=== PATIENT | female | born 1950 | race Caucasian/White ===

== ENCOUNTER 2023-01-12 10:23 | Inpatient (IN) | payer OTHER ==
[~2023-01-12] VITALS: Ht 153.7 cm; Wt 99.0 kg
[~2023-01-12 10:23] MED LIST: ALEN35TA18 PO; ALL100T PO; AML5T PO; ATE50T PO; HYDR-4072 PO; HYDR25TA4 PO; PANT40TA2 PO
[2023-01-12 11:25] VITALS: PULSE 108; RESP 16; O2SAT 91
[2023-01-12 11:35] LABS: INR 1.14 (0.9-1.15); Partial Thromboplastin Time 30.2 SEC (24.5-34.5); Prothrombin Time 11.9 sec (9.3-11.8)
[2023-01-12 11:41] LABS: Albumin 2.3 g/dL (3.4-5.0); BUN/Creatinine Ratio 18.6 (10.0-20.0); Calcium 8.3 mg/dL (8.5-10.1)
[2023-01-12 11:44] LABS: Total Protein 6.4 g/dL (6.4-8.2)
[2023-01-12 11:49] LABS: Basophils # (auto) 0.1 10 ^3/uL (0-0.2); Basophils % (auto) 0.4 % (0.0-2.0); Eosinophils # (auto) 0 10 ^3/uL (0-0.8); Eosinophils % (auto) 0.1 % (0.0-7.0); Hematocrit 35.7 % (36.0-46.0); Hemoglobin 11.8 g/dL (12.2-16.2); Lymphocytes # (auto) 1.1 10 ^3/uL (0.4-5.4); Lymphocytes % (auto) 6.1 % (10.0-50.0); Mean Corpuscular Hemoglobin 29.3 pg (28.0-32.0); Mean Corpuscular Hgb Conc. 32.9 g/dL (32.0-36.0); Mean Corpuscular Volume 89.1 fL (80.0-100.0); Monocytes # (auto) 1.2 10 ^3/uL (0-1.3); Monocytes % (auto) 6.5 % (0.0-12.0); Neutrophils # (auto) 16.4 10 ^3/uL (1.6-8.6); Neutrophils % (auto) 86.9 % (37.0-80.0); Nucleated Red Blood Cells % 0.1 %; Red Blood Cells 4.01 10^6/uL (4.0-5.20); White Blood Cell 18.9 10^3/uL (4.4-10.8)
[2023-01-12] MEDS ORDERED: ONDANSETRON HCL 4 MG/2 ML VIAL IV PRN (13:45)
[2023-01-12] MEDS ORDERED: ACETAMINOPHEN 325 MG TAB PO PRN (13:45)
[2023-01-12] MEDS ORDERED: MORPHINE SULFATE INJ 2 MG/ml SYRG IV PRN (13:45)
[2023-01-12] MEDS ORDERED: POTASSIUM CHL 20MEQ/100ML 100 ML IV ONE ×2 (14:45→22:00)
[2023-01-12] MEDS: HYDROcodone-ACET 5/325MG TAB PO PRN ×2 (15:03→23:22)
[2023-01-12 15:21] LABS: COVID19 ANTIGEN SOFIA FIA NEGATIVE (NEGATIVE)
[2023-01-12 22:01] VITALS: PULSE 107; RESP 20; O2SAT 92
[2023-01-12 23:13] VITALS: BP 151/85; PULSE 123; RESP 22; TEMP 97.6; O2SAT 93
[2023-01-12] MEDS: amLODIPine BESYLATE 5 MG TAB PO SCH (23:21)
[2023-01-13] VITALS (7 sets, daily range): BP systolic 121–149; BP diastolic 51–83; PULSE 71–118; RESP 18–22; TEMP 97.7–98.2; O2SAT 92–97
[2023-01-13] MEDS ORDERED: fentaNYL CITRATE 100 MCG/2 ML VL ONE (07:38)
[2023-01-13] MEDS ORDERED: MEPERIDINE HCL (25 MG/ML) 1ML VIAL ONE ×2 (07:39→09:42)
[2023-01-13] MEDS ORDERED: MIDAZOLAM HCL 2MG/2ML 2ml VIAL (1mg/ml) ONE (07:39)
[2023-01-13] MEDS ORDERED: PROPOFOL 10 MG/ML 20 ML IV ONE (07:45)
[2023-01-13] MEDS ORDERED: DexAMETHasone SOD PHOS 10MG/1ML VIAL INJ ONE (07:45)
[2023-01-13] MEDS ORDERED: ceFAZolin 1GM/50ML 100 ML IV ONE ×2 (07:53→07:55)
[2023-01-13] MEDS ORDERED: SUCCINYLCHOLINE CHLORIDE 20 MG/ML 10ML VIAL IV ONE (07:59)
[2023-01-13] MEDS ORDERED: LIDOCAINE 2% JELLY 11ml (GLYDO) ONE (08:18)
[2023-01-13] MEDS ORDERED: ONDANSETRON HCL 4 MG/2 ML VIAL IV PRN ×2 (08:45→10:15)
[2023-01-13] MEDS ORDERED: MILK OF MAGNESIA 30ML SUSP PO PRN (08:45)
[2023-01-13] MEDS ORDERED: ACETAMINOPHEN 325 MG TAB PO PRN (08:45)
[2023-01-13] MEDS ORDERED: HYDROmorphone HCL 2 MG/ML VL/or syr IV PRN (10:15)
[2023-01-13] MEDS ORDERED: LABETALOL HCL 5 MG/ML 4ML SYRINGE IV PRN (10:15)
[2023-01-13] MEDS ORDERED: ePHEDrine SULFATE 50 MG/ML AMP IV PRN (10:15)
[2023-01-13] MEDS ORDERED: MIDAZOLAM HCL 2MG/2ML 2ml VIAL (1mg/ml) IV PRN (10:15)
[2023-01-13] MEDS ORDERED: MORPHINE SULFATE 4 MG/ML SYR/VIAL IV PRN (10:15)
[2023-01-13] MEDS ORDERED: hydrALAZINE HCL 20 MG/ML VL IV PRN (10:15)
[2023-01-13 12:27] LABS: Calcium 8.2 mg/dL (8.5-10.1); Potassium 3.2 mmol/L (3.5-5.1)
[2023-01-13 12:32] LABS: BUN/Creatinine Ratio 26.1 (10.0-20.0); Bilirubin, Total 1.2 mg/dL (0.2-1.0); Total Protein 6.7 g/dL (6.4-8.2)
[2023-01-13] MEDS: DOCUSATE SOD 100 MG CAP PO SCH ×2 (13:08→21:34)
[2023-01-13] MEDS: PANTOPRAZOLE 40 MG TAB PO SCH (13:08)
[2023-01-13] MEDS: amLODIPine BESYLATE 5 MG TAB PO SCH ×2 (13:08→21:37)
[2023-01-13] MEDS: ATENOLOL 50 MG TAB PO SCH (13:09)
[2023-01-13] MEDS: D5W/SOD CHLO 0.9% 1,000 ML IV SCH ×2 (13:11→18:45)
[2023-01-13 13:43] LABS: Basophils # (auto) 0 10 ^3/uL (0-0.2); Basophils % (auto) 0.2 % (0.0-2.0); Eosinophils # (auto) 0 10 ^3/uL (0-0.8); Hematocrit 34.6 % (36.0-46.0); Hemoglobin 11.2 g/dL (12.2-16.2); Lymphocytes # (auto) 0.6 10 ^3/uL (0.4-5.4); Lymphocytes % (auto) 3.7 % (10.0-50.0); Mean Corpuscular Hemoglobin 29.2 pg (28.0-32.0); Mean Corpuscular Hgb Conc. 32.3 g/dL (32.0-36.0); Mean Corpuscular Volume 90.3 fL (80.0-100.0); Monocytes # (auto) 0.5 10 ^3/uL (0-1.3); Monocytes % (auto) 3.1 % (0.0-12.0); Neutrophils # (auto) 14.1 10 ^3/uL (1.6-8.6); Nucleated Red Blood Cells % 0.1 %; Red Blood Cells 3.84 10^6/uL (4.0-5.20); Red Cell Distribution Width 15.1 % (11.8-14.3); White Blood Cell 15.2 10^3/uL (4.4-10.8)
[2023-01-13] MEDS: CYCLOBENZAPRINE HCL 10 MG TAB PO SCH ×2 (14:21→21:34)
[2023-01-13] MEDS: ceFAZolin 1GM/50ML 50 ML IV SCH ×2 (17:20→23:17)
[2023-01-13] MEDS ORDERED: ONDANSETRON HCL 4 MG/2 ML VIAL IV ONE (20:23)
[2023-01-13] MEDS ORDERED: ETOMIDATE (2MG/ML) 20ML VIAL IV ONE (20:23)
[2023-01-13] MEDS: HYDROcodone-ACET 10/325MG TAB PO PRN (21:37)
[2023-01-14] MEDS: HYDROcodone-ACET 10/325MG TAB PO PRN ×3 (02:29→17:18)
[2023-01-14] MEDS: D5W/SOD CHLO 0.9% 1,000 ML IV SCH (04:45)
[2023-01-14 05:00] VITALS: BP 139/72; PULSE 83; RESP 18; TEMP 97.9; O2SAT 91
[2023-01-14] MEDS: CYCLOBENZAPRINE HCL 10 MG TAB PO SCH ×2 (05:59→13:53)
[2023-01-14 06:57] LABS: Basophils # (auto) 0.1 10 ^3/uL (0-0.2); Basophils % (auto) 0.5 % (0.0-2.0); Eosinophils # (auto) 0 10 ^3/uL (0-0.8); Hematocrit 31.2 % (36.0-46.0); Lymphocytes # (auto) 1.3 10 ^3/uL (0.4-5.4); Lymphocytes % (auto) 9.2 % (10.0-50.0); Mean Corpuscular Volume 90.4 fL (80.0-100.0); Monocytes # (auto) 0.8 10 ^3/uL (0-1.3); Monocytes % (auto) 5.8 % (0.0-12.0); Neutrophils # (auto) 12.2 10 ^3/uL (1.6-8.6); Neutrophils % (auto) 84.5 % (37.0-80.0); Red Blood Cells 3.45 10^6/uL (4.0-5.20); Red Cell Distribution Width 15.1 % (11.8-14.3); White Blood Cell 14.4 10^3/uL (4.4-10.8)
[2023-01-14 07:22] LABS: Calcium 7.8 mg/dL (8.5-10.1); Potassium 3.4 mmol/L (3.5-5.1)
[2023-01-14 07:24] LABS: BUN/Creatinine Ratio 25.8 (10.0-20.0)
[2023-01-14 08:00] VITALS: BP 137/71; PULSE 84; RESP 20; TEMP 97.8; O2SAT 94
[2023-01-14 09:00] VITALS: BP 137/71; PULSE 92; RESP 20; TEMP 97.8; O2SAT 97
[2023-01-14] MEDS: amLODIPine BESYLATE 5 MG TAB PO SCH (09:10)
[2023-01-14] MEDS: DOCUSATE SOD 100 MG CAP PO SCH (09:12)
[2023-01-14] MEDS: PANTOPRAZOLE 40 MG TAB PO SCH (09:13)
[2023-01-14] MEDS: ATENOLOL 50 MG TAB PO SCH (09:13)
[2023-01-14] MEDS ORDERED: POTASSIUM CHL 20 Meq TABLET PO ONE (09:30)
[2023-01-14 13:00] VITALS: BP 127/63; PULSE 80; RESP 20; TEMP 98.6; O2SAT 91
[2023-01-14 17:41] VITALS: BP 137/71; PULSE 92; RESP 20; TEMP 97.8; O2SAT 97
[2023-01-14 20:00] VITALS: O2SAT 94
== END 2023-01-14 20:24 | DRG 908 ==
LOC: ER 10:23 → TELE 13:48 → TELE-WESTW 22:57
PROVIDERS: ADMIT Internal Medicine; ATTEND Internal Medicine
PROC: 009U0ZZ Drainage of Spinal Canal, Open Approach (ICD-10-PCS; principal; 2023-01-13 08:11)
DX: M96.843 Postprocedural seroma of a musculoskeletal structure following other procedure (principal); Z68.41 Body mass index [BMI] 40.0-44.9, adult; M48.061 Spinal stenosis, lumbar region without neurogenic claudication; E87.6 Hypokalemia; Z20.822 Contact with and (suspected) exposure to COVID-19; R29.6 Repeated falls; Y83.8 Other surgical procedures as the cause of abnormal reaction of the patient, or of later complication, without mention of misadventure at the time of the procedure; I10 Essential (primary) hypertension; Z88.8 Allergy status to other drugs, medicaments and biological substances; Z82.0 Family history of epilepsy and other diseases of the nervous system; Z82.49 Family history of ischemic heart disease and other diseases of the circulatory system; Z88.6 Allergy status to analgesic agent; Z90.49 Acquired absence of other specified parts of digestive tract; Y92.89 Other specified places as the place of occurrence of the external cause
CPT/HCPCS: 36415; 71045; 72100; 76000; 80048; 80053; 84484; 85025; 85610; 85730; 87426; 96360; 97163; G0378; J0330; J0690; J1100; J2250; J2405; J2704; J3480; J7042

== ENCOUNTER 2023-02-14 04:33 | Inpatient (IN) | payer OTHER ==
[~2023-02-14] VITALS: Ht 165.1 cm; Wt 132.6 kg
[~2023-02-14 04:33] MED LIST changes: -ALEN35TA18 PO; -HYDR25TA4 PO
[2023-02-14 11:28] VITALS: BP 132/66; PULSE 70; RESP 19; TEMP 98.4
[2023-02-14] MEDS ORDERED: ONDANSETRON HCL 4 MG/2 ML VIAL IV PRN (12:45)
[2023-02-14] MEDS ORDERED: HYDROcodone-ACET 5/325MG TAB PO PRN (12:45)
[2023-02-14] MEDS ORDERED: NITROGLYCERIN 0.4 MG SL TAB SL PRN (12:45)
[2023-02-14] MEDS ORDERED: MORPHINE SULFATE INJ 2 MG/ml SYRG IV PRN ×2 (12:45)
[2023-02-14 13:05] VITALS: BP 132/66; PULSE 70; RESP 19; TEMP 98.4; O2SAT 96
[2023-02-14] MEDS: SODIUM CHLORIDE 0.9% 1,000 ML IV SCH ×2 (13:41→21:05)
[2023-02-14] MEDS: CEFEPIME 2GM/50ML NS 50 ML IV SCH ×2 (13:53→21:32)
[2023-02-14 14:46] LABS: Hemoglobin 10.9 g/dL (12.2-16.2); Red Blood Cells 3.82 10^6/uL (4.0-5.20)
[2023-02-14 14:48] LABS: Hematocrit 33.8 % (36.0-46.0); Mean Corpuscular Hemoglobin 28.4 pg (28.0-32.0); Mean Corpuscular Hgb Conc. 32.1 g/dL (32.0-36.0); Mean Corpuscular Volume 88.4 fL (80.0-100.0); Red Cell Distribution Width 15.9 % (11.8-14.3)
[2023-02-14 14:49] LABS: Anion Gap 11.4 (5-15); Carbon Dioxide 20.6 mmol/L (20-30); Chloride 106 mmol/L (98-107); Potassium 3.6 mmol/L (3.5-5.1); Sodium 138 mmol/L (136-145); White Blood Cell 1.5 10^3/uL (4.4-10.8)
[2023-02-14 14:50] LABS: Calcium 8.8 mg/dL (8.5-10.1)
[2023-02-14 14:51] LABS: Band Neutrophils % (manual) 0; Blast Cells 0; Metamyelocytes % 0; Monocytes % (manual) 0 (0-12); Myelocytes % 0; Promyelocytes % 0; Reactive Lymphocytes 0
[2023-02-14 14:54] LABS: Glucose 89 mg/dL (74-106)
[2023-02-14 14:55] LABS: BUN/Creatinine Ratio 24.5 (10.0-20.0); Blood Urea Nitrogen 12 mg/dL (9-23)
[2023-02-14 15:20] LABS: Basophils % (manual) 1 (0.0-2.0); Eosinophils % (manual) 3 (0-7); Lymphocytes % (manual) 76 (10.0-50.0)
[2023-02-14 15:21] LABS: Platelet Estimate Decreased
[2023-02-14 20:00] VITALS: PULSE 85
[2023-02-14 22:00] VITALS: BP 153/69; PULSE 90; RESP 19; TEMP 97.6; O2SAT 97
[2023-02-15 05:00] VITALS: BP 150/86; PULSE 80; RESP 18; TEMP 97.8; O2SAT 98
[2023-02-15] MEDS: SODIUM CHLORIDE 0.9% 1,000 ML IV SCH ×3 (05:07→21:03)
[2023-02-15 06:00] LABS: Hematocrit 34.6 % (36.0-46.0); Hemoglobin 11.2 g/dL (12.2-16.2); Mean Corpuscular Hemoglobin 28.5 pg (28.0-32.0); Mean Corpuscular Hgb Conc. 32.4 g/dL (32.0-36.0); Mean Corpuscular Volume 87.8 fL (80.0-100.0); Red Blood Cells 3.94 10^6/uL (4.0-5.20); Red Cell Distribution Width 15.5 % (11.8-14.3)
[2023-02-15 06:03] LABS: White Blood Cell 0.3 10^3/uL (4.4-10.8)
[2023-02-15] MEDS: CEFEPIME 2GM/50ML NS 50 ML IV SCH ×2 (06:04→13:26)
[2023-02-15 06:05] LABS: Band Neutrophils % (manual) 0; Basophils % (manual) 0 (0.0-2.0); Blast Cells 0; Eosinophils % (manual) 0 (0-7); Metamyelocytes % 0; Myelocytes % 0; Promyelocytes % 0; Reactive Lymphocytes 0
[2023-02-15 06:26] LABS: Alanine Aminotransferase 23 U/L (7-40); Albumin 3.9 g/dL (3.2-4.8); Alkaline Phosphatase 161 U/L (46-116); Anion Gap 11.8 (5-15); Aspartate Aminotransferase 75 U/L (13-40); BUN/Creatinine Ratio 23.6 (10.0-20.0); Bilirubin, Total 0.3 mg/dL (0.2-1.0); Blood Urea Nitrogen 13 mg/dL (9-23); Carbon Dioxide 20.2 mmol/L (20-30); Chloride 104 mmol/L (98-107); Glucose 87 mg/dL (74-106); Potassium 3.3 mmol/L (3.5-5.1); Sodium 136 mmol/L (136-145)
[2023-02-15 06:27] LABS: Total Protein 6.5 g/dL (5.7-8.2)
[2023-02-15 08:00] VITALS: BP 134/74; PULSE 104; PULSE 109; RESP 20; TEMP 98.8; O2SAT 97
[2023-02-15 09:42] VITALS: BP 134/74; PULSE 104; RESP 20; TEMP 98.8; O2SAT 97
[2023-02-15] MEDS: ENOXAPARIN SOD 40 MG/0.4 ML SYRINGE SC SCH (09:57)
[2023-02-15 12:53] LABS: Lymphocytes % (manual) 88 (10.0-50.0); Monocytes % (manual) 4 (0-12)
[2023-02-15 12:54] LABS: Platelet Estimate Decreased
[2023-02-15 13:22] VITALS: BP 149/69; PULSE 93; RESP 19; TEMP 97.7; O2SAT 94
[2023-02-15] MEDS: AZTREONAM 1GM INJ 1 GM in D5W 5% 50 ML IV SCH ×2 (15:54→21:03)
[2023-02-15 16:53] VITALS: BP 148/73; PULSE 73; RESP 19; TEMP 100.4; O2SAT 93
[2023-02-15] MEDS: ACETAMINOPHEN 325 MG TAB PO PRN (16:58)
[2023-02-15 20:00] VITALS: PULSE 86
[2023-02-15] MEDS ORDERED: POTASSIUM CHL 20 Meq TABLET PO ONE (20:30)
[2023-02-15] MEDS: amLODIPine BESYLATE 5 MG TAB PO SCH (21:03)
[2023-02-16] VITALS (9 sets, daily range): BP systolic 138–164; BP diastolic 64–84; PULSE 62–99; RESP 16–19; TEMP 97.9–98.7; O2SAT 95–98
[2023-02-16] MEDS: AZTREONAM 1GM INJ 1 GM in D5W 5% 50 ML IV SCH ×3 (05:40→22:16)
[2023-02-16] MEDS: SODIUM CHLORIDE 0.9% 1,000 ML IV SCH ×2 (07:04→16:23)
[2023-02-16] MEDS: PANTOPRAZOLE 40 MG TAB PO SCH (09:20)
[2023-02-16] MEDS: amLODIPine BESYLATE 5 MG TAB PO SCH ×2 (09:20→22:06)
[2023-02-16] MEDS: ENOXAPARIN SOD 40 MG/0.4 ML SYRINGE SC SCH (09:21)
[2023-02-16] MEDS: ATENOLOL 50 MG TAB PO SCH (09:21)
[2023-02-16] MEDS ORDERED: ALLOPURINOL 100 MG TAB PO SCH (10:00)
[2023-02-16] MEDS ORDERED: FILGRASTIM(TBO) 480 MCG/0.8 ML SYRG SC ONE (14:52)
[2023-02-16] MEDS: ACETAMINOPHEN 325 MG TAB PO PRN ×2 (17:02→23:02)
[2023-02-16 19:58] LABS: Basophils # (auto) 0 10 ^3/uL (0-0.2); Basophils % (auto) 0.2 % (0.0-2.0); Eosinophils # (auto) 0.1 10 ^3/uL (0-0.8); Eosinophils % (auto) 2.4 % (0.0-7.0); Hematocrit 29.5 % (36.0-46.0); Hemoglobin 9.6 g/dL (12.2-16.2); Lymphocytes # (auto) 0.5 10 ^3/uL (0.4-5.4); Lymphocytes % (auto) 21.3 % (10.0-50.0); Mean Corpuscular Hemoglobin 28.2 pg (28.0-32.0); Mean Corpuscular Hgb Conc. 32.5 g/dL (32.0-36.0); Mean Corpuscular Volume 86.8 fL (80.0-100.0); Monocytes # (auto) 0.1 10 ^3/uL (0-1.3); Monocytes % (auto) 4.9 % (0.0-12.0); Neutrophils # (auto) 1.7 10 ^3/uL (1.6-8.6); Neutrophils % (auto) 71.2 % (37.0-80.0); Nucleated Red Blood Cells % 0.1 %; Red Cell Distribution Width 15.3 % (11.8-14.3); White Blood Cell 2.3 10^3/uL (4.4-10.8)
[2023-02-16 20:35] LABS: Chloride 104 mmol/L (98-107); Sodium 139 mmol/L (136-145)
[2023-02-16 20:37] LABS: Calcium 7.8 mg/dL (8.5-10.1)
[2023-02-16 20:41] LABS: BUN/Creatinine Ratio 23.3 (10.0-20.0); Blood Urea Nitrogen 10 mg/dL (9-23); Glucose 92 mg/dL (74-106)
[2023-02-16 21:36] LABS: Potassium 2.9 mmol/L (3.5-5.1)
[2023-02-16] MEDS ORDERED: POTASSIUM CHL 20 Meq TABLET PO ONE (22:00)
[2023-02-17] VITALS (7 sets, daily range): BP systolic 128–160; BP diastolic 64–77; PULSE 62–77; RESP 16–19; TEMP 98.1–98.6; O2SAT 94–97
[2023-02-17] MEDS: SODIUM CHLORIDE 0.9% 1,000 ML IV SCH ×3 (03:09→18:05)
[2023-02-17] MEDS: AZTREONAM 1GM INJ 1 GM in D5W 5% 50 ML IV SCH ×2 (05:59→14:31)
[2023-02-17 06:53] LABS: Basophils # (auto) 0 10 ^3/uL (0-0.2); Basophils % (auto) 0.1 % (0.0-2.0); Eosinophils # (auto) 0.1 10 ^3/uL (0-0.8); Hematocrit 32.5 % (36.0-46.0); Hemoglobin 10.5 g/dL (12.2-16.2); Lymphocytes # (auto) 0.6 10 ^3/uL (0.4-5.4); Lymphocytes % (auto) 9.9 % (10.0-50.0); Mean Corpuscular Hemoglobin 28.4 pg (28.0-32.0); Mean Corpuscular Hgb Conc. 32.3 g/dL (32.0-36.0); Monocytes # (auto) 0.2 10 ^3/uL (0-1.3); Monocytes % (auto) 3.7 % (0.0-12.0); Neutrophils # (auto) 5.2 10 ^3/uL (1.6-8.6); Neutrophils % (auto) 85.3 % (37.0-80.0); Nucleated Red Blood Cells % 0.1 %; Red Blood Cells 3.69 10^6/uL (4.0-5.20); Red Cell Distribution Width 15.5 % (11.8-14.3); White Blood Cell 6.1 10^3/uL (4.4-10.8)
[2023-02-17 07:21] LABS: % Iron Saturation 10.9 % (15-50); Alanine Aminotransferase 16 U/L (7-40); Albumin 3.3 g/dL (3.2-4.8); Alkaline Phosphatase 120 U/L (46-116); Aspartate Aminotransferase 25 U/L (13-40); BUN/Creatinine Ratio 15.4 (10.0-20.0); Bilirubin, Direct 0.1 mg/dL (<0.3); Bilirubin, Total 0.3 mg/dL (0.2-1.0); Blood Urea Nitrogen 6 mg/dL (9-23); Calcium 8.4 mg/dL (8.5-10.1); Chloride 105 mmol/L (98-107); Glucose 95 mg/dL (74-106); Potassium 3.2 mmol/L (3.5-5.1); Sodium 139 mmol/L (136-145); Total Protein 5.5 g/dL (5.7-8.2)
[2023-02-17 09:37] LABS: Ferritin > 1650.0 ng/mL (10-291)
[2023-02-17] MEDS: ENOXAPARIN SOD 40 MG/0.4 ML SYRINGE SC SCH (10:36)
[2023-02-17] MEDS: PANTOPRAZOLE 40 MG TAB PO SCH (10:38)
[2023-02-17] MEDS: ATENOLOL 50 MG TAB PO SCH (10:38)
[2023-02-17] MEDS: amLODIPine BESYLATE 5 MG TAB PO SCH ×2 (10:38→21:45)
[2023-02-17] MEDS ORDERED: FILGRASTIM(TBO) 480 MCG/0.8 ML SYRG SC SCH (15:00)
[2023-02-17] MEDS ORDERED: POTASSIUM CHL 20 Meq TABLET PO ONE (15:15)
[2023-02-17] MEDS: ACETAMINOPHEN 325 MG TAB PO PRN (17:58)
[2023-02-17] MEDS ORDERED: MEROPENEM 1 GM IV ONE (20:45)
[2023-02-17] MEDS: DOCUSATE SOD 100 MG CAP PO SCH (21:45)
[2023-02-18] MEDS: SODIUM CHLORIDE 0.9% 1,000 ML IV SCH (00:05)
[2023-02-18 04:33] VITALS: BP 150/73; PULSE 77; RESP 18; TEMP 98.6; O2SAT 92
[2023-02-18 08:00] VITALS: PULSE 78; RESP 18
[2023-02-18 09:00] VITALS: BP 145/76; PULSE 73; RESP 16; TEMP 98.3; O2SAT 95
[2023-02-18 09:14] LABS: Chloride 103 mmol/L (98-107); Potassium 3.1 mmol/L (3.5-5.1); Sodium 139 mmol/L (136-145)
[2023-02-18 09:15] LABS: Anion Gap 11.3 (5-15); Calcium 8.3 mg/dL (8.5-10.1); Carbon Dioxide 24.7 mmol/L (20-30)
[2023-02-18 09:20] LABS: BUN/Creatinine Ratio 11.1 (10.0-20.0); Blood Urea Nitrogen 5 mg/dL (9-23); Glucose 78 mg/dL (74-106)
[2023-02-18 09:21] LABS: Hematocrit 34.6 % (36.0-46.0); Hemoglobin 11.2 g/dL (12.2-16.2); Mean Corpuscular Hemoglobin 28.5 pg (28.0-32.0); Mean Corpuscular Hgb Conc. 32.4 g/dL (32.0-36.0); Mean Corpuscular Volume 87.9 fL (80.0-100.0); Red Blood Cells 3.94 10^6/uL (4.0-5.20); Red Cell Distribution Width 15.7 % (11.8-14.3); White Blood Cell 17.9 10^3/uL (4.4-10.8)
[2023-02-18 09:22] LABS: Basophils % (manual) 0 (0.0-2.0); Blast Cells 0; Metamyelocytes % 0; Myelocytes % 0; Promyelocytes % 0; Reactive Lymphocytes 0
[2023-02-18 10:00] LABS: Band Neutrophils % (manual) 15; Eosinophils % (manual) 1 (0-7); Lymphocytes % (manual) 8 (10.0-50.0); Monocytes % (manual) 7 (0-12); Platelet Estimate Adequate
[2023-02-18] MEDS ORDERED: PSYLLIUM PWD 5.8GM PKG GT PRN (10:00)
[2023-02-18] MEDS: DOCUSATE SOD 100 MG CAP PO SCH ×2 (12:14→22:00)
[2023-02-18] MEDS: PANTOPRAZOLE 40 MG TAB PO SCH (12:15)
[2023-02-18] MEDS: amLODIPine BESYLATE 5 MG TAB PO SCH ×2 (12:15→21:22)
[2023-02-18] MEDS: ATENOLOL 50 MG TAB PO SCH (12:15)
[2023-02-18] MEDS: ENOXAPARIN SOD 40 MG/0.4 ML SYRINGE SC SCH (12:22)
[2023-02-18 13:00] VITALS: BP 133/63; PULSE 71; RESP 18; TEMP 98.1; O2SAT 95
[2023-02-18] MEDS: ACETAMINOPHEN 325 MG TAB PO PRN ×2 (13:53→21:28)
[2023-02-18 20:00] VITALS: PULSE 67
[2023-02-18 22:00] VITALS: BP 147/68; PULSE 73; RESP 18; TEMP 98.4; O2SAT 96
[2023-02-19] VITALS (7 sets, daily range): BP systolic 142–161; BP diastolic 66–76; PULSE 64–75; RESP 17–20; TEMP 97.9–98.5; O2SAT 94–99
[2023-02-19] MEDS: SODIUM CHLORIDE 0.9% 1,000 ML IV SCH ×2 (00:57→09:25)
[2023-02-19] MEDS: DOCUSATE SOD 100 MG CAP PO SCH ×2 (10:00→21:51)
[2023-02-19 11:07] LABS: Basophils # (auto) 0.1 10 ^3/uL (0-0.2); Basophils % (auto) 0.3 % (0.0-2.0); Eosinophils # (auto) 0.2 10 ^3/uL (0-0.8); Eosinophils % (auto) 0.8 % (0.0-7.0); Hematocrit 39.3 % (36.0-46.0); Hemoglobin 12.1 g/dL (12.2-16.2); Lymphocytes # (auto) 2.2 10 ^3/uL (0.4-5.4); Lymphocytes % (auto) 9.8 % (10.0-50.0); Mean Corpuscular Hemoglobin 28.1 pg (28.0-32.0); Mean Corpuscular Hgb Conc. 30.8 g/dL (32.0-36.0); Mean Corpuscular Volume 91.5 fL (80.0-100.0); Monocytes % (auto) 4.3 % (0.0-12.0); Neutrophils # (auto) 18.8 10 ^3/uL (1.6-8.6); Neutrophils % (auto) 84.8 % (37.0-80.0); Nucleated Red Blood Cells % 0.1 %; Red Cell Distribution Width 16.8 % (11.8-14.3); White Blood Cell 22.1 10^3/uL (4.4-10.8)
[2023-02-19 13:56] LABS: Anion Gap 16.4 (5-15); Carbon Dioxide 17.6 mmol/L (20-30); Chloride 102 mmol/L (98-107); Potassium 3.3 mmol/L (3.5-5.1); Sodium 136 mmol/L (136-145)
[2023-02-19 13:57] LABS: Calcium 8.1 mg/dL (8.5-10.1)
[2023-02-19 14:01] LABS: Glucose 84 mg/dL (74-106)
[2023-02-19 14:04] LABS: BUN/Creatinine Ratio 9.4 (10.0-20.0); Blood Urea Nitrogen < 5 mg/dL (9-23)
[2023-02-19] MEDS: PANTOPRAZOLE 40 MG TAB PO SCH (14:20)
[2023-02-19] MEDS: amLODIPine BESYLATE 5 MG TAB PO SCH ×2 (14:20→21:51)
[2023-02-19] MEDS: ATENOLOL 50 MG TAB PO SCH (14:21)
[2023-02-19] MEDS: ENOXAPARIN SOD 40 MG/0.4 ML SYRINGE SC SCH (14:21)
[2023-02-19] MEDS: ACETAMINOPHEN 325 MG TAB PO PRN (21:50)
[2023-02-20] VITALS (7 sets, daily range): BP systolic 139–155; BP diastolic 65–75; PULSE 63–80; RESP 18–21; TEMP 97.7–98.5; O2SAT 92–98
[2023-02-20] MEDS: SODIUM CHLORIDE 0.9% 1,000 ML IV SCH ×3 (02:05→16:52)
[2023-02-20] MEDS: DOCUSATE SOD 100 MG CAP PO SCH ×2 (10:00→22:00)
[2023-02-20] MEDS: PANTOPRAZOLE 40 MG TAB PO SCH (10:38)
[2023-02-20] MEDS: ATENOLOL 50 MG TAB PO SCH (10:39)
[2023-02-20] MEDS: amLODIPine BESYLATE 5 MG TAB PO SCH ×2 (10:39→22:42)
[2023-02-20] MEDS: ENOXAPARIN SOD 40 MG/0.4 ML SYRINGE SC SCH (10:39)
[2023-02-20] MEDS ORDERED: LOPERAMIDE HCL 2 MG CAP/TAB PO PRN (15:30)
[2023-02-20] MEDS: CHOLESTYRAMINE 4 GM POWDER PO SCH ×2 (18:34→22:43)
[2023-02-20] MEDS: ACETAMINOPHEN 325 MG TAB PO PRN (22:41)
[2023-02-21] MEDS: SODIUM CHLORIDE 0.9% 1,000 ML IV SCH (03:05)
[2023-02-21 05:00] VITALS: BP 108/57; PULSE 62; RESP 18; TEMP 97.9; O2SAT 98
[2023-02-21] MEDS: CHOLESTYRAMINE 4 GM POWDER PO SCH ×2 (06:00→12:35)
[2023-02-21 08:00] VITALS: PULSE 69; PULSE 70; RESP 16; O2SAT 97
[2023-02-21 09:00] VITALS: BP 152/76; PULSE 69; RESP 16; TEMP 98.3; O2SAT 97
[2023-02-21] MEDS: ENOXAPARIN SOD 40 MG/0.4 ML SYRINGE SC SCH (09:37)
[2023-02-21] MEDS: PANTOPRAZOLE 40 MG TAB PO SCH (09:37)
[2023-02-21] MEDS: amLODIPine BESYLATE 5 MG TAB PO SCH (09:38)
[2023-02-21] MEDS: ATENOLOL 50 MG TAB PO SCH (09:38)
[2023-02-21] MEDS: DOCUSATE SOD 100 MG CAP PO SCH (09:38)
[2023-02-21 13:00] VITALS: BP 98/72; PULSE 62; RESP 18; TEMP 98.5; O2SAT 97
== END 2023-02-21 15:20 | disposition home health service (06) | DRG 698 ==
LOC: TELE-CENTR 11:28 → UNDOADMIN 11:28 → TELE-CENTR 12:34
PROVIDERS: ADMIT Internal Medicine; ATTEND Internal Medicine
DX: T83.511A Infection and inflammatory reaction due to indwelling urethral catheter, initial encounter (principal); G93.41 Metabolic encephalopathy; A04.72 Enterocolitis due to Clostridium difficile, not specified as recurrent; B49 Unspecified mycosis; Z68.42 Body mass index [BMI] 45.0-49.9, adult; N39.0 Urinary tract infection, site not specified; Y84.6 Urinary catheterization as the cause of abnormal reaction of the patient, or of later complication, without mention of misadventure at the time of the procedure; I10 Essential (primary) hypertension; E66.01 Morbid (severe) obesity due to excess calories; T36.1X5A Adverse effect of cephalosporins and other beta-lactam antibiotics, initial encounter; D69.6 Thrombocytopenia, unspecified; Z88.6 Allergy status to analgesic agent; Z80.3 Family history of malignant neoplasm of breast; Z82.0 Family history of epilepsy and other diseases of the nervous system; Z82.49 Family history of ischemic heart disease and other diseases of the circulatory system; Z15.01 Genetic susceptibility to malignant neoplasm of breast
CPT/HCPCS: 36415; 80048; 80053; 80076; 82607; 82728; 83540; 83550; 83615; 83880; 85007; 85025; 85027; 87081; 87493; 96365; 96375; 97110; 97163; G0378; J0692; J1447; J2185; J7060

== ENCOUNTER 2023-06-28 10:23 | Inpatient (IN) | payer OTHER ==
[~2023-06-28] VITALS: Ht 165.1 cm; Wt 84.5 kg
[~2023-06-28 10:23] MED LIST changes: +ALEN35TA18 PO; -ALL100T PO; +ALLO100T PO; +APIX5TAB PO; +CYCL0.05 EACHEYE; +ESCI1TAB37 PO; +METO-535 PO; +PANT40TA57 PO; +SUCR1SUS26 PO
[2023-06-28 11:34] LABS: Basophils # (auto) 0 10 ^3/uL (0-0.2); Basophils % (auto) 0.2 % (0.0-2.0); Eosinophils # (auto) 0 10 ^3/uL (0-0.8); Hematocrit 39.2 % (36.0-46.0); Hemoglobin 12.4 g/dL (12.2-16.2); Lymphocytes # (auto) 1.7 10 ^3/uL (0.4-5.4); Lymphocytes % (auto) 10.8 % (10.0-50.0); Mean Corpuscular Hemoglobin 30.3 pg (28.0-32.0); Mean Corpuscular Hgb Conc. 31.6 g/dL (32.0-36.0); Mean Corpuscular Volume 95.9 fL (80.0-100.0); Monocytes # (auto) 0.6 10 ^3/uL (0-1.3); Monocytes % (auto) 4.1 % (0.0-12.0); Neutrophils # (auto) 13.1 10 ^3/uL (1.6-8.6); Neutrophils % (auto) 84.9 % (37.0-80.0); Nucleated Red Blood Cells % 0.1 %; Red Blood Cells 4.09 10^6/uL (4.0-5.20); Red Cell Distribution Width 16.8 % (11.8-14.3); White Blood Cell 15.4 10^3/uL (4.4-10.8)
[2023-06-28 11:43] LABS: Chloride 95 mmol/L (98-107); Potassium 3.3 mmol/L (3.5-5.1); Sodium 128 mmol/L (136-145)
[2023-06-28 11:44] LABS: Anion Gap 13 (5-15); Calcium 7.8 mg/dL (8.7-10.4); Carbon Dioxide 20 mmol/L (20-30)
[2023-06-28 11:48] LABS: Uric Acid 5.7 mg/dL (3.1-7.8)
[2023-06-28 11:49] LABS: BUN/Creatinine Ratio 14.7 (10.0-20.0); Blood Urea Nitrogen 17 mg/dL (9-23); Glucose 149 mg/dL (74-106)
[2023-06-28] MEDS ORDERED: SODIUM CHLORIDE 0.9% 1,000 ML IV ONE ×2 (14:45)
[2023-06-28] MEDS ORDERED: cefTRIAXone 1GM/50ML D5W 50 ML IV ONE (14:45)
[2023-06-28 15:00] VITALS: PULSE 126; RESP 16; O2SAT 98
[2023-06-28] MEDS ORDERED: IOHEXOL 300 MG/ML 100ML BOTTLE IJ ONE (15:28)
[2023-06-28 15:34] LABS: Urine Epithelial Cast None Seen /hpf (<5)
[2023-06-28 15:55] LABS: Urine Bacteria NONE SEEN /hpf (None Seen); Urine Blood 2+ /uL (Negative); Urine Budding Yeast MANY /hpf (None Seen); Urine Clarity CLOUDY (Clear); Urine Color Brown (Yellow); Urine Protein, UAD 1+ (Negative); Urine Specific Gravity 1.022 (1.001-1.035); Urine WBC 14 /hpf (0 - 5)
[2023-06-28] MEDS ORDERED: MORPHINE SULFATE INJ 2 MG/ml SYRG IV PRN ×2 (16:45→17:30)
[2023-06-28] MEDS ORDERED: NITROGLYCERIN 0.4 MG SL TAB SL PRN (16:45)
[2023-06-28] MEDS ORDERED: ACETAMINOPHEN 325 MG TAB PO PRN (16:45)
[2023-06-28] MEDS: SODIUM CHLORIDE 0.9% 1,000 ML IV SCH (16:57)
[2023-06-28 17:28] LABS: Amphetamine Screen, Urine Neg (NEGATIVE); Barbiturate Scree,Urine Neg (NEGATIVE); Benzodiazephine Screen, Urine Neg (NEGATIVE)
[2023-06-28 17:29] LABS: Cannabinoid Screen, Urine Neg (NEGATIVE); Cocaine Screen, Urine Neg (NEGATIVE); Opiate Scree,Urine Neg (NEGATIVE); Phencyclidine Screen, Urine Neg (NEGATIVE)
[2023-06-28] MEDS ORDERED: MORPHINE SULFATE 4 MG/ML SYR/VIAL IV PRN (17:30)
[2023-06-28] MEDS: PIPERACILLIN-TAZOB 3.375GM 100 ML IV SCH (17:46)
[2023-06-28] MEDS: HYDROcodone-ACET 5/325MG TAB PO PRN (23:19)
[2023-06-29] VITALS (7 sets, daily range): BP systolic 99–111; BP diastolic 61–74; PULSE 88–110; RESP 16–22; TEMP 97.6–98.9; O2SAT 94–100
[2023-06-29] MEDS: SODIUM CHLORIDE 0.9% 1,000 ML IV SCH (01:05)
[2023-06-29] MEDS: PIPERACILLIN-TAZOB 3.375GM 100 ML IV SCH ×3 (01:37→18:25)
[2023-06-29 05:04] LABS: Basophils # (auto) 0 10 ^3/uL (0-0.2); Basophils % (auto) 0.3 % (0.0-2.0); Eosinophils # (auto) 0 10 ^3/uL (0-0.8); Hemoglobin 10.8 g/dL (12.2-16.2); Lymphocytes # (auto) 1.3 10 ^3/uL (0.4-5.4); Lymphocytes % (auto) 10.7 % (10.0-50.0); Mean Corpuscular Hemoglobin 31.3 pg (28.0-32.0); Mean Corpuscular Hgb Conc. 31.7 g/dL (32.0-36.0); Mean Corpuscular Volume 98.4 fL (80.0-100.0); Monocytes # (auto) 0.6 10 ^3/uL (0-1.3); Monocytes % (auto) 4.7 % (0.0-12.0); Neutrophils # (auto) 10.6 10 ^3/uL (1.6-8.6); Neutrophils % (auto) 84.3 % (37.0-80.0); Red Blood Cells 3.45 10^6/uL (4.0-5.20); Red Cell Distribution Width 17.6 % (11.8-14.3); White Blood Cell 12.5 10^3/uL (4.4-10.8)
[2023-06-29 05:19] LABS: Alanine Aminotransferase 10 U/L (7-40); Albumin 2.1 g/dL (3.2-4.8); Alkaline Phosphatase 129 U/L (46-116); Anion Gap 11 (5-15); Aspartate Aminotransferase 15 U/L (13-40); BUN/Creatinine Ratio 13.9 (10.0-20.0); Blood Urea Nitrogen 21 mg/dL (9-23); Calcium 7.1 mg/dL (8.7-10.4); Carbon Dioxide 20 mmol/L (20-30); Chloride 98 mmol/L (98-107); Glucose 109 mg/dL (74-106); Potassium 2.8 mmol/L (3.5-5.1); Sodium 129 mmol/L (136-145)
[2023-06-29 05:20] LABS: Bilirubin, Total 0.5 mg/dL (0.2-1.0)
[2023-06-29] MEDS: ENOXAPARIN SOD 40 MG/0.4 ML SYRINGE SC SCH (09:43)
[2023-06-29] MEDS ORDERED: NYSTATIN TOPICAL CREAM 15GM TOP ONE (10:00)
[2023-06-29] MEDS: POTASSIUM CHLORIDE 40 MEQ in D5W/LACTATED RINGERS 1,000 ML IV SCH ×2 (11:47→18:25)
[2023-06-29] MEDS ORDERED: LOPERAMIDE HCL 2 MG CAP/TAB PO PRN (20:00)
[2023-06-29] MEDS: ONDANSETRON HCL 4 MG/2 ML VIAL IV PRN (20:12)
[2023-06-29] MEDS: HYDROcodone-ACET 5/325MG TAB PO PRN (22:21)
[2023-06-29] MEDS: NYSTATIN TOPICAL POWDER 15GM TOP SCH (22:21)
[2023-06-30] VITALS (7 sets, daily range): BP systolic 90–106; BP diastolic 40–67; PULSE 80–105; RESP 16–19; TEMP 96.7–98.8; O2SAT 94–100
[2023-06-30] MEDS: PIPERACILLIN-TAZOB 3.375GM 100 ML IV SCH ×2 (01:12→10:54)
[2023-06-30] MEDS: POTASSIUM CHLORIDE 40 MEQ in D5W/LACTATED RINGERS 1,000 ML IV SCH ×2 (04:59→16:52)
[2023-06-30] MEDS ORDERED: SODIUM CHLORIDE 0.9% 500 ML IV ONE (07:00)
[2023-06-30] MEDS ORDERED: VANCOMYCIN PER PHARMACY 0 MG IV SCH (07:45)
[2023-06-30] MEDS: NYSTATIN TOPICAL POWDER 15GM TOP SCH ×2 (10:00→22:21)
[2023-06-30 10:23] LABS: Basophils # (auto) 0 10 ^3/uL (0-0.2); Basophils % (auto) 0.1 % (0.0-2.0); Eosinophils # (auto) 0 10 ^3/uL (0-0.8); Eosinophils % (auto) 0.1 % (0.0-7.0); Hematocrit 29.1 % (36.0-46.0); Hemoglobin 9.4 g/dL (12.2-16.2); Lymphocytes # (auto) 1.4 10 ^3/uL (0.4-5.4); Lymphocytes % (auto) 18.6 % (10.0-50.0); Mean Corpuscular Hemoglobin 30.8 pg (28.0-32.0); Mean Corpuscular Hgb Conc. 32.3 g/dL (32.0-36.0); Mean Corpuscular Volume 95.3 fL (80.0-100.0); Monocytes # (auto) 0.3 10 ^3/uL (0-1.3); Monocytes % (auto) 3.6 % (0.0-12.0); Neutrophils # (auto) 5.8 10 ^3/uL (1.6-8.6); Neutrophils % (auto) 77.6 % (37.0-80.0); Nucleated Red Blood Cells % 0.1 %; Red Blood Cells 3.06 10^6/uL (4.0-5.20); Red Cell Distribution Width 16.6 % (11.8-14.3); White Blood Cell 7.5 10^3/uL (4.4-10.8)
[2023-06-30 10:44] LABS: Alanine Aminotransferase 11 U/L (7-40); Albumin 2.1 g/dL (3.2-4.8); Alkaline Phosphatase 141 U/L (46-116); Anion Gap 7 (5-15); Aspartate Aminotransferase 15 U/L (13-40); Bilirubin, Total 0.4 mg/dL (0.2-1.0); Calcium 6.9 mg/dL (8.7-10.4); Carbon Dioxide 26 mmol/L (20-30); Chloride 100 mmol/L (98-107); Glucose 145 mg/dL (74-106); Magnesium 1.5 mg/dL (1.6-2.6); Potassium 3.2 mmol/L (3.5-5.1); Sodium 133 mmol/L (136-145); Total Protein 3.7 g/dL (5.7-8.2)
[2023-06-30 10:48] LABS: Blood Urea Nitrogen 31 mg/dL (9-23)
[2023-06-30] MEDS: VANCOMYCIN 1GM/200ML 200 ML IV SCH (10:53)
[2023-06-30] MEDS: ENOXAPARIN SOD 40 MG/0.4 ML SYRINGE SC SCH (10:53)
[2023-06-30 12:07] LABS: % Iron Saturation 35.2 % (15-50)
[2023-06-30] MEDS: HYDROcodone-ACET 5/325MG TAB PO PRN (20:02)
[2023-07-01] VITALS (7 sets, daily range): BP systolic 90–120; BP diastolic 54–63; PULSE 84–106; RESP 18–20; TEMP 97.3–98.3; O2SAT 94–99
[2023-07-01] MEDS: POTASSIUM CHLORIDE 40 MEQ in D5W/LACTATED RINGERS 1,000 ML IV SCH ×3 (01:38→22:47)
[2023-07-01] MEDS: PIPERACILLIN-TAZOB 3.375GM 100 ML IV SCH ×4 (01:38→17:56)
[2023-07-01] MEDS: HYDROcodone-ACET 5/325MG TAB PO PRN (03:25)
[2023-07-01 09:42] LABS: Basophils # (auto) 0 10 ^3/uL (0-0.2); Basophils % (auto) 0.1 % (0.0-2.0); Eosinophils # (auto) 0 10 ^3/uL (0-0.8); Eosinophils % (auto) 0.2 % (0.0-7.0); Lymphocytes # (auto) 1.5 10 ^3/uL (0.4-5.4); Lymphocytes % (auto) 21.6 % (10.0-50.0); Mean Corpuscular Hemoglobin 31.8 pg (28.0-32.0); Mean Corpuscular Volume 105.9 fL (80.0-100.0); Monocytes # (auto) 0.3 10 ^3/uL (0-1.3); Monocytes % (auto) 4.8 % (0.0-12.0); Neutrophils # (auto) 5.1 10 ^3/uL (1.6-8.6); Neutrophils % (auto) 73.3 % (37.0-80.0); Nucleated Red Blood Cells % 0.1 %; Red Blood Cells 2.83 10^6/uL (4.0-5.20); Red Cell Distribution Width 18.8 % (11.8-14.3)
[2023-07-01 10:01] LABS: Alanine Aminotransferase 19 U/L (7-40); Albumin 1.8 g/dL (3.2-4.8); Alkaline Phosphatase 232 U/L (46-116); Anion Gap 10 (5-15); Aspartate Aminotransferase 31 U/L (13-40); Blood Urea Nitrogen 20 mg/dL (9-23); Calcium 7.2 mg/dL (8.5-10.1); Carbon Dioxide 21 mmol/L (20-30); Chloride 104 mmol/L (98-107); Glucose 119 mg/dL (74-106); Potassium 3.8 mmol/L (3.5-5.1); Sodium 135 mmol/L (136-145)
[2023-07-01 10:02] LABS: Bilirubin, Total 0.3 mg/dL (0.2-1.0); Total Protein 3.3 g/dL (5.7-8.2)
[2023-07-01] MEDS: NYSTATIN TOPICAL POWDER 15GM TOP SCH ×2 (10:15→21:39)
[2023-07-01] MEDS: ENOXAPARIN SOD 40 MG/0.4 ML SYRINGE SC SCH (10:15)
[2023-07-01] MEDS: PANTOPRAZOLE 40 MG/10 ML VIAL INJ IV SCH (10:15)
[2023-07-01] MEDS: VANCOMYCIN 1GM/200ML 200 ML IV SCH (10:15)
[2023-07-01] MEDS: ONDANSETRON HCL 4 MG/2 ML VIAL IV PRN (10:32)
[2023-07-01 11:45] LABS: Magnesium 1.3 mg/dL (1.6-2.6)
[2023-07-01] MEDS ORDERED: MAGNESIUM OXIDE 400 MG TAB PO SCH (14:15)
[2023-07-01] MEDS ORDERED: SODIUM CHLORIDE 0.9% 500 ML IV ONE (14:30)
[2023-07-01] MEDS: MAGNESIUM SULFATE 1GM/100ML 100 ML IV SCH ×2 (15:00→16:02)
[2023-07-01] MEDS ORDERED: GADOTERATE MEG 10 MMOL/20ml INJ (0.5MMOL/ml) IV ONE (15:37)
[2023-07-01] MEDS: DexAMETHasone SOD PHOS 4 MG/1ML SDV INJ IV SCH ×2 (15:45→21:28)
[2023-07-01] MEDS: MAGNESIUM OXIDE 400 MG TAB PO SCH (21:28)
[2023-07-01] MEDS: DOXYCYCLINE 100 MG TAB/CAP PO SCH (21:28)
[2023-07-02] MEDS: PIPERACILLIN-TAZOB 3.375GM 100 ML IV SCH ×2 (01:37→09:37)
[2023-07-02 05:00] VITALS: BP 120/68; PULSE 17; RESP 98; TEMP 98; O2SAT 98
[2023-07-02 08:00] VITALS: RESP 19
[2023-07-02] MEDS: POTASSIUM CHLORIDE 40 MEQ in D5W/LACTATED RINGERS 1,000 ML IV SCH (08:09)
[2023-07-02] MEDS: ENOXAPARIN SOD 40 MG/0.4 ML SYRINGE SC SCH (09:44)
[2023-07-02] MEDS: DOXYCYCLINE 100 MG TAB/CAP PO SCH (09:45)
[2023-07-02] MEDS: MAGNESIUM OXIDE 400 MG TAB PO SCH (09:45)
[2023-07-02] MEDS: PANCREATIC ENZYMES 4200 UNIT CAP PO SCH ×2 (09:57→12:00)
[2023-07-02] MEDS: DexAMETHasone SOD PHOS 4 MG/1ML SDV INJ IV SCH (09:57)
[2023-07-02] MEDS: NYSTATIN TOPICAL POWDER 15GM TOP SCH (10:00)
[2023-07-02] MEDS: PANTOPRAZOLE 40 MG/10 ML VIAL INJ IV SCH (10:00)
[2023-07-02 10:40] LABS: Alanine Aminotransferase 22 U/L (7-40); Alkaline Phosphatase 246 U/L (46-116); Anion Gap 9 (5-15); Aspartate Aminotransferase 22 U/L (13-40); BUN/Creatinine Ratio 17.6 (10.0-20.0); Bilirubin, Total 0.3 mg/dL (0.2-1.0); Blood Urea Nitrogen 16 mg/dL (9-23); Calcium 7.3 mg/dL (8.7-10.4); Carbon Dioxide 20 mmol/L (20-30); Chloride 109 mmol/L (98-107); Glucose 128 mg/dL (74-106); Magnesium 1.4 mg/dL (1.6-2.6); Sodium 138 mmol/L (136-145); Total Protein 3.5 g/dL (5.7-8.2)
[2023-07-02 10:45] LABS: Basophils # (auto) 0 10 ^3/uL (0-0.2); Basophils % (auto) 0.2 % (0.0-2.0); Eosinophils # (auto) 0 10 ^3/uL (0-0.8); Hematocrit 28.6 % (36.0-46.0); Hemoglobin 9.3 g/dL (12.2-16.2); Lymphocytes # (auto) 1.2 10 ^3/uL (0.4-5.4); Lymphocytes % (auto) 16.7 % (10.0-50.0); Mean Corpuscular Hemoglobin 31.8 pg (28.0-32.0); Mean Corpuscular Hgb Conc. 32.5 g/dL (32.0-36.0); Mean Corpuscular Volume 97.9 fL (80.0-100.0); Monocytes # (auto) 0.2 10 ^3/uL (0-1.3); Neutrophils # (auto) 5.7 10 ^3/uL (1.6-8.6); Neutrophils % (auto) 80.1 % (37.0-80.0); Red Blood Cells 2.93 10^6/uL (4.0-5.20); Red Cell Distribution Width 17.5 % (11.8-14.3); White Blood Cell 7.1 10^3/uL (4.4-10.8)
[2023-07-02 13:00] VITALS: BP 116/85; PULSE 68; RESP 18; TEMP 97.6; O2SAT 95
[2023-07-02 13:14] VITALS: TEMP 36.7
== END 2023-07-02 13:50 | DRG 391 ==
LOC: EDSEX 10:23 → ER 10:23 → EDBD 10:23 → OVERFLOW 16:38 → CENTRAL 23:53 → OBSVTOIN 06-30 09:56 → CENTRAL 06-30 17:08
PROVIDERS: ADMIT Student in an Organized Health Care Education/Training Program; ATTEND Student in an Organized Health Care Education/Training Program
DX: R19.7 Diarrhea, unspecified (principal); N17.0 Acute kidney failure with tubular necrosis; N39.0 Urinary tract infection, site not specified; R78.81 Bacteremia; E87.1 Hypo-osmolality and hyponatremia; E44.1 Mild protein-calorie malnutrition; E86.0 Dehydration; G89.29 Other chronic pain; I70.0 Atherosclerosis of aorta; Z74.01 Bed confinement status; R00.0 Tachycardia, unspecified; D64.9 Anemia, unspecified; I10 Essential (primary) hypertension; K57.30 Diverticulosis of large intestine without perforation or abscess without bleeding; M54.50 Low back pain, unspecified; L98.429 Non-pressure chronic ulcer of back with unspecified severity; Z82.0 Family history of epilepsy and other diseases of the nervous system; Z82.49 Family history of ischemic heart disease and other diseases of the circulatory system; Z88.6 Allergy status to analgesic agent; Z90.49 Acquired absence of other specified parts of digestive tract
CPT/HCPCS: 36415; 70450; 71045; 74018; 74177; 80048; 80053; 80307; 81001; 83036; 83540; 83550; 83735; 83880; 84443; 84484; 84550; 85025; 85048; 87040; 87045; 87077; 87186; 87427; 87493; 93306; 93970; 97163; 99291; C9113; G0378; J1100; J2405; J2543